=== PATIENT | female | born 1955 | race Two or more races ===

== ENCOUNTER 2019-09-20 20:36 | Inpatient (IN) | payer OTHER ==
[~2019-09-20] VITALS: Ht 165.1 cm; Wt 63.0 kg
[2019-09-20] MEDS ORDERED: PIPERACILLIN /TAZOBACTAM 3.375 G VIAL IV ONE (20:52)
--- NOTE | 2019-09-20 20:55 | NUR ---
PT CAME TO ER BED 8 BIB RA FROM [facility] C/O TACHYCARDIA. PER EMS REPORT, PATIENT HAD A HEART RATE OF 130 AND WAS BROUGHT TO ED FOR FURTHER SEPTIC ASSESSMENT. PATIENT HAS A TEMPERATURE OF 97.7 RECTALLY. PATIENT IS RESPONSIVE TO PAINFUL STIMULI, BUT DOES NOT RESPOND TO VERBAL STIMULI. NO SOB. ON 3L OF N/C. CONNECTED TO ASSISTANT TO THE VICE PRESIDENT.
[2019-09-20] MEDS ORDERED: IV NS 0.9% 1,000 ML BAG IV ONE (21:00)
[2019-09-20] MEDS ORDERED: PIPERACILLIN /TAZOBACTAM 3.375 G in IV D5W 50 ML IV ONE (21:00)
--- NOTE | 2019-09-20 21:02 | NUR ---
CULTURE AND BLOOD DRAWN AND SENT TO LAB
[2019-09-20 21:07] LABS: BASOPHILS # (AUTO) 0.1 /CMM (0.0-0.2); BASOPHILS % (AUTO) 0.6 % (0.0-2.0); EOSINOPHILS % (AUTO) 2.6 % (0.0-6.0); HEMATOCRIT 33 % (33-45); HEMOGLOBIN 10.5 g/dL (11.5-14.8); LYMPHOCYTES # (AUTO) 2.4 /CMM (0.8-4.8); LYMPHOCYTES % (AUTO) 19.2 % (20.0-44.0); MEAN CORPUSCULAR HGB CONC 32 g/dl (31.0-36.0); MEAN CORPUSCULAR VOLUME 91 fL (82-100); MONOCYTES # (AUTO) 1.2 /CMM (0.1-1.30); MONOCYTES % (AUTO) 9.1 % (2.0-12.0); NEUTROPHILS # (AUTO) 8.7 /CMM (1.8-8.9); NEUTROPHILS % (AUTO) 68.5 % (43.0-81.0); PLATELET COUNT (AUTO) 551 /CMM (150-450); RED BLOOD CELL COUNT(AUTO) 3.59 MIL/uL (4.0-5.2); WHITE BLOOD COUNT (AUTO) 12.7 K/uL (4.3-11.0)
[2019-09-20] MEDS ORDERED: CARB25TA3 GT (21:10)
[2019-09-20] MEDS ORDERED: DOCU-141 GT (21:11)
[2019-09-20] MEDS ORDERED: GABA-532 GT (21:13)
[2019-09-20] MEDS ORDERED: ENOX40DI9 SQ (21:13)
[2019-09-20] MEDS ORDERED: GINK120C GT (21:15)
[2019-09-20] MEDS ORDERED: PANT40SU GT (21:16)
[2019-09-20] MEDS ORDERED: ASPI-1169 GT (21:17)
[2019-09-20 21:18] LABS: CALCIUM, SERUM 9.3 mg/dL (8.5-10.1); CARBON DIOXIDE 28 mmol/L (21-32); CHLORIDE 107 mmol/L (98-107); CREATININE 0.9 mg/dL (0.6-1.3); GLUCOSE 137 mg/dL (74-106); POTASSIUM 4.1 mmol/L (3.5-5.1); SODIUM SERUM 146 mmol/L (136-145); UREA NITROGEN, BLOOD 23 mg/dL (7-18)
[2019-09-20] MEDS ORDERED: MULT1TAB73 GT (21:18)
[2019-09-20] MEDS ORDERED: ZINC1POW GT (21:19)
[2019-09-20] MEDS ORDERED: CRAN500C5 GT (21:20)
--- NOTE | 2019-09-20 21:23 | NUR ---
URINE COLLECTED AND SENT TO LAB
[2019-09-20 21:30] LABS: APPEARANCE,URINE Clear (CLEAR); BILIRUBIN,URINE Negative (NEGATIVE); BLOOD, URINE Negative Ery/uL (NEGATIVE); COLOR,URINE Yellow (YELLOW); KETONES,URINE Negative (NEGATIVE); LEUKOCYTE ESTERASE ,URINE Small (NEGATIVE); NITRITE, URINE Negative (NEGATIVE); PROTEIN,URINE 30 mg/dl (NEGATIVE); UGLUCOSE Negative (NEGATIVE); UROBILINOGEN,URINE 0.2 EU/dL (0.2)
[2019-09-20 21:37] LABS: ALANINE AMINOTRANSFERASE 23 U/L (12-78); ALBUMIN 2.2 g/dL (3.4-5.0); ALKALINE PHOSPHATASE 127 U/L (46-116); ASPARTATE AMINOTRANSFERASE 35 U/L (15-37); BILIRUBIN,TOTAL 0.1 mg/dL (0.2-1.0); TOTAL PROTEIN, SERUM 7.1 g/dL (6.4-8.2)
[2019-09-20 21:42] LABS: BACTERIA,URINE Many /HPF (None Seen); SQUAMOUS EPITHELIAL CELL,UR Many /HPF (None Seen)
[2019-09-20 21:43] LABS: WBC,URINE 21-50 /HPF (0-3)
[2019-09-20 21:44] LABS: HYALINE CASTS, URINE Few /LPF (None Seen)
[2019-09-20] MEDS ORDERED: ACETAMINOPHEN 325 MG TABLET PO PRN (22:00)
[2019-09-20] MEDS ORDERED: ONDANSETRON HCL/PF 4 MG/2 ML VIAL IVP PRN (22:00)
[2019-09-20] MEDS ORDERED: ZOLPIDEM TARTRATE 5 MG TABLET PO PRN (22:00)
[2019-09-20] MEDS ORDERED: Z GUARD REMEDY 2 OZ OINT TP PRN (22:00)
[2019-09-20] MEDS ORDERED: MAGNESIUM HYDROXIDE 30 ML UDC PO PRN (22:00)
[2019-09-20] MEDS ORDERED: MAG HYDROX/AL HYDROX/SIMETH 30 ML UDC PO PRN (22:00)
--- NOTE | 2019-09-20 22:35 | NUR ---
COVID SAMPLE SENT TO LAB
[2019-09-20 22:38] LABS: ABG BASE EXCESS -0.4 mmol/L; ABG OXYGEN SATURATION 97.6 % (92.0-98.5); ABG PCO2 35.6 mmHg (35.0-45.0); ABG PH 7.438 (7.350-7.450); AaDO2 66.5 mmHg; COHb 0.3 % (0.5-1.5); MetHb 0.5 % (0.0-1.5); O2Hb 96.8 % (94.0-97.0); SITE, ABG Right Radial; VENT MODE, BG N/C 3L
--- NOTE | 2019-09-20 22:39 | NUR ---
PATIEN SUCTIONED VIA NT, 100ML OF CLEAR SPUTUM.
--- NOTE | 2019-09-20 22:39 | NUR ---
SATURATION 100%, 3L N/C POST -SUCTION
--- NOTE | 2019-09-20 22:54 | NUR ---
ROOM [facility]
[2019-09-20] MEDS ORDERED: IV NS 0.9% 1,000 ML IV ONE (23:00)
[2019-09-20] MEDS ORDERED: LEVALBUTEROL HCL NEB 1.25 MG/0.5 ML VIAL.NEB NEB PRN (23:00)
--- NOTE | 2019-09-20 23:00 | NUR ---
REPORT GIVEN TO SATISH SNIDER FOR CHEYANNE.
--- NOTE | 2019-09-20 23:17 | NUR ---
RN AMBER ADMITTING NOTES RECEIVED PT FROM ER VIA [place] ON O2 3L VIA NC SATURATING @ 98%, NO SIGN AND SYMPTOMS OF RESPIRATORY DISTRESS PT IS COUGHING,PUT ON DROPLET ISOLATION TO R/O COVID PENDING RESULT OPEN HER EYES VIA MILD STIMULUS, ORIENTED X 0 JUST MOANING, SAFELY TRANSFER TO BED, V/S CHECKED AND RECORDED, HEAD TO TOE ASSESSMENT DONE, SACRAL, LOWER LEG WOUNDS NOTED FOR WOUND CONSULT, PT HAVE GTUBE PATENT AND NO LEAKAGE, WITH IV ON L AC#20 AND LHAND # 22 PATENT NO SIGN OF INFILTRATION, ADMISSION ASSESSMENT DONE, PUT TO TELE MONITOR WITH READING SINUS TACHY 120'S, SAFETY MEASURE MAINTAINED, BED ON LOWEST POSSIBLE POSITION AND LOCKED SIDE RAILS UP X3, CALL LIGHT WITHIN REACH WILL CONT TO MONITOR
[2019-09-20] MEDS ORDERED: VANCOMYCIN 1 GM in IV D5W 250ml IV ONE (23:30)
[2019-09-20] MEDS ORDERED: VANCOMYCIN 1 GM VIAL ONE (23:52)
[2019-09-21 00:28] VITALS: BP 133/63
[2019-09-21] MEDS ORDERED: LORAZEPAM INJ 2 MG/ML VIAL IV PRN (00:30)
[2019-09-21] MEDS: IV 1/2NS 1000 ML 1,000 ML IV SCH ×2 (00:49→12:18)
--- NOTE | 2019-09-21 00:55 | NUR ---
RN AMEBR NOTES NS BOLUS STOP PER SNEHA GORMAN HUMAN ANATOMY TEACHER ORDER, NOTED AND CARRIED OUT
[2019-09-21] MEDS ORDERED: PIPERACILLIN /TAZOBACTAM 3.375 G VIAL IV ONE (00:56)
--- NOTE | 2019-09-21 01:00 | NUR ---
RN AMBER NOTES SNEHA GORMAN MAINTENANCE HELPER WAS INFORMED ABOUT THE CRITICAL VALUE OF LACTIC ACID 3.5 mmol/L w/c is TRENDING UP WITH NO NEW ORDER
[2019-09-21] MEDS ORDERED: PIPERACILLIN /TAZOBACTAM 3.375 G in IV D5W 50 ML IV ONE (03:00)
[2019-09-21 04:00] VITALS: BP 144/90
[2019-09-21] MEDS ORDERED: FEE PK DOSING 1 MIN EA MC ONE (06:28)
--- NOTE | 2019-09-21 06:59 | NUR ---
RN CLOSING NOTES PT IS SLEEPING NO SIGN AND SYMPTOMS OF RESPIRATORY DISTRESS 02 SAT 100% @ 3L VIA NC, PT STILL COUGHING, ON TELE MONITOR WITH READING SINUS TACHY 110'S-130'S, DROPLET ISOLATION MAINTAINED AND OBSERVED TO R/0 COVID 19, RESULTS PENDING,SAFETY MEASURE MAINTAINED, BED ON LOWEST POSITION AND LOCKED CALL LIGHT WITHIN REACH, SIDE RAILS UP X3 ALL NEEDS ATTENDED WILL ENDORSED TO AM SHIFT RN
[2019-09-21 07:04] LABS: BASOPHILS # (AUTO) 0.1 /CMM (0.0-0.2); BASOPHILS % (AUTO) 0.5 % (0.0-2.0); EOSINOPHILS % (AUTO) 3.1 % (0.0-6.0); HEMATOCRIT 33 % (33-45); HEMOGLOBIN 10.8 g/dL (11.5-14.8); LYMPHOCYTES # (AUTO) 2.3 /CMM (0.8-4.8); LYMPHOCYTES % (AUTO) 22.4 % (20.0-44.0); MEAN CORPUSCULAR HGB CONC 33 g/dl (31.0-36.0); MEAN CORPUSCULAR VOLUME 91 fL (82-100); MONOCYTES # (AUTO) 1.3 /CMM (0.1-1.30); NEUTROPHILS # (AUTO) 6.2 /CMM (1.8-8.9); PLATELET COUNT (AUTO) 498 /CMM (150-450); RED BLOOD CELL COUNT(AUTO) 3.59 MIL/uL (4.0-5.2); WHITE BLOOD COUNT (AUTO) 10.2 K/uL (4.3-11.0)
--- NOTE | 2019-09-21 07:10 | NUR ---
RN opening note: Received patient in bed and asleep. Appears comfortable and relaxed. On cont. 02 via NC @3lpm being tolerated well. No SOB noted. Tele monitoring showing sinus tachycardia noted in the 120s. Isolation precautions strictly observed for R/O covid status. Gtube patent and in place. IV sites clean, dry, patent and intact. Velázquez catheter draining yellow urine. Call light in reach. Bed locked, low and at semi-catalan's position. Safety ensured and observed. Will continue to monitor.
[2019-09-21 07:15] LABS: CALCIUM, SERUM 8.5 mg/dL (8.5-10.1); CREATININE 0.8 mg/dL (0.6-1.3); MAGNESIUM 2.1 mg/dL (1.8-2.4); PHOSPHORUS 3.7 mg/dL (2.5-4.9); POTASSIUM 4.4 mmol/L (3.5-5.1)
[2019-09-21] MEDS ORDERED: ALBUTEROL HALF STRENGTH 1.25 MG/3 ML VIAL.NEB NEB PRN (07:35)
[2019-09-21] MEDS ORDERED: LATA2.5D7 EACHEYE (07:49)
[2019-09-21] MEDS ORDERED: LACT-96 GT (07:49)
[2019-09-21] MEDS ORDERED: SENN-261 GT (07:49)
[2019-09-21] MEDS ORDERED: GUAI100S11 GT (07:49)
[2019-09-21] MEDS ORDERED: CARB1TAB21 GT (07:49)
[2019-09-21] MEDS ORDERED: FERR300L GT (07:49)
[2019-09-21] MEDS ORDERED: ZINC1CAP2 GT (07:49)
[2019-09-21] MEDS ORDERED: CLOZ200T24 GT (07:49)
[2019-09-21] MEDS ORDERED: VIT500LI GT (07:49)
[2019-09-21 08:00] VITALS: BP_SYST 125; BP_SYST 141; BP_DIAS 60; BP_DIAS 91
[2019-09-21 08:01] LABS: C-REACTIVE PROTEIN 7.2 mg/dL (0.0-0.9)
[2019-09-21 08:24] LABS: IRON, SERUM 46 ug/dl (50-175); TOTAL IRON BINDING CAPACITY 151 ug/dl (250-450)
[2019-09-21] MEDS: PANTOPRAZOLE 40 MG/PACK PACK GT SCH ×2 (08:27→09:09)
[2019-09-21] MEDS: PIPERACILLIN /TAZOBACTAM 3.375 G in IV D5W 50 ML IV SCH ×4 (08:27→23:08)
[2019-09-21] MEDS: ASPIRIN 81 MG TAB.CHEW GT SCH ×2 (09:00→17:25)
[2019-09-21] MEDS ORDERED: CARBIDOPA 25 MG TABLET GT SCH ×2 (09:00)
[2019-09-21] MEDS: GABAPENTIN 100 MG CAPSULE GT SCH ×3 (09:09→17:24)
[2019-09-21] MEDS: MULTIVITAMINS,THERAGRAN 1 UDTAB TABLET GT SCH (09:10)
[2019-09-21] MEDS: ENOXAPARIN SODIUM 40 MG/0.4 ML DISP.SYRIN SQ SCH (09:14)
[2019-09-21] MEDS: CARBIDOPA/LEVODOPA 25/100 MG 1 UDTAB GT SCH ×4 (09:16→21:05)
--- NOTE | 2019-09-21 10:00 | NUR ---
RN NOTE: Spoke to Kirill Raya DNP to clarify regarding patient's Aspirin 81mg daily as patient has Lovenox 40mg Daily per recommendation of Med Recon NurseLuis E. Kirill acknowledged information. Ok to hold today but medication was not discontinued.
[2019-09-21 11:07] LABS: THYROID STIMULATING HORMONE 3.528 uIU/mL (0.358-3.74)
[2019-09-21 12:00] VITALS: BP 136/89
[2019-09-21] MEDS: VANCOMYCIN 1 GM in IV D5W 250 ML IV SCH ×2 (12:00→23:08)
[2019-09-21 16:00] VITALS: BP 135/85
--- NOTE | 2019-09-21 16:00 | NUR ---
RN note: Clarified with Kirill Raya DNP if Clozapine 200mg HS should be continued per pharmacy. Medication was ordered, noted and carried out.
--- NOTE | 2019-09-21 17:20 | NUR ---
RN NOTE: per pharmacy patient needs to be enrolled in rems program to be able to get Clozapine. Informed Kirill Raya DNP of situation and he acknowledged and will process it
[2019-09-21] MEDS ORDERED: AZITHROMYCIN 250 MG TABLET PO SCH (18:00)
[2019-09-21] MEDS ORDERED: AZITHROMYCIN 250 MG TABLET GT ONE (18:00)
--- NOTE | 2019-09-21 19:36 | NUR ---
RN closing note: Patient in bed and asleep. Appears comfortable and relaxed. On cont. 02 via NC @3lpm being tolerated well. No SOB noted. Tele monitoring showing sinus tachycardia noted in the 100s. Isolation precautions strictly observed for R/O covid status. Gtube patent and in place. IV sites clean, dry, patent and intact. Velázquez catheter draining yellow urine. Call light in reach. Bed locked, low and at semi-catalan's position. Safety ensured and observed. Endorsed to oncoming shift for CHEYANNE.
--- NOTE | 2019-09-21 19:40 | NUR ---
RN NOTES, Patient in bed sleeping at this time, breathing even and unlabored, no s/s of sob/acute distress noted at this time, on 3lmp via nl with o2 sat level 99% at this time, sinus tachy in tele monitoring with hr low 100s at this time, on Isolation precautions strictly observed for R/O covid status, NPO at this time, IV sites patent and intact, Velázquez catheter in placed draining yellow urine, patency intact, call light in reach, Bed locked and low position, all needs provided, will continue to monitor closely.
[2019-09-21 20:00] VITALS: BP 133/80
[2019-09-21] MEDS ORDERED: CLOZAPINE 100 MG TABLET PO SCH (22:00)
[2019-09-22] VITALS: BP 133/82
[2019-09-22 04:00] VITALS: BP 129/79
[2019-09-22] MEDS: PIPERACILLIN /TAZOBACTAM 3.375 G in IV D5W 50 ML IV SCH ×3 (05:00→17:00)
[2019-09-22] MEDS: IV 1/2NS 1000 ML 1,000 ML IV SCH ×2 (05:41→16:48)
--- NOTE | 2019-09-22 07:04 | NUR ---
RN CLOSING NOTES, Patient in bed and asleep, breathing even and unlabored, no sob/acute distress noted on 3lpm via nc, cont sinus tachycardia in tele monitor, with HR low 100s, on Isolation precautions for R/O covid status, still waiting for results, no significant change in condition throughout the night, call light w/i in reach, bed locked and low position, with hob elevated, Safety precautions in placed, will endorsed continuity of care to oncoming nurse.
[2019-09-22 07:05] LABS: BASOPHILS # (AUTO) 0.1 /CMM (0.0-0.2); BASOPHILS % (AUTO) 0.8 % (0.0-2.0); EOSINOPHILS % (AUTO) 3.8 % (0.0-6.0); HEMATOCRIT 29 % (33-45); HEMOGLOBIN 9.6 g/dL (11.5-14.8); LYMPHOCYTES # (AUTO) 2.1 /CMM (0.8-4.8); LYMPHOCYTES % (AUTO) 17.1 % (20.0-44.0); MEAN CORPUSCULAR HGB CONC 33 g/dl (31.0-36.0); MEAN CORPUSCULAR VOLUME 89 fL (82-100); MONOCYTES # (AUTO) 1.4 /CMM (0.1-1.30); MONOCYTES % (AUTO) 10.8 % (2.0-12.0); NEUTROPHILS # (AUTO) 8.4 /CMM (1.8-8.9); NEUTROPHILS % (AUTO) 67.5 % (43.0-81.0); PLATELET COUNT (AUTO) 482 /CMM (150-450); RED BLOOD CELL COUNT(AUTO) 3.25 MIL/uL (4.0-5.2); WHITE BLOOD COUNT (AUTO) 12.5 K/uL (4.3-11.0)
--- NOTE | 2019-09-22 07:20 | NUR ---
ALL SOURCE COLLECTION MANAGER NOTES PATIENT IN BED ABLE TO OPEN EYES WHEN NAME IS CALLED.A/OX1 CONFUSED. SATURATION 100%. ON MARTINEZ CATHETER AND RIGHT ARM IV LINES ARE PATENT AND FLUSHED WITH NS WELL. SINUS TACHYCARDIA LOW 100`S. ON ISOLATION TO RULE OUT COVID-19. CALL LIGHT WITHIN REACH BED AT THE LOWEST POSITION LOCKED . WILL CONTINUE TO MONITOR.
--- NOTE | 2019-09-22 07:20 | NUR ---
SAFETY SCIENTIST NOTES NO RESIDUAL NOTED AT GT SITE.
[2019-09-22 07:21] LABS: ALANINE AMINOTRANSFERASE 12 U/L (12-78); ALKALINE PHOSPHATASE 113 U/L (46-116); ASPARTATE AMINOTRANSFERASE 29 U/L (15-37); BILIRUBIN,TOTAL 0.4 mg/dL (0.2-1.0); CALCIUM, SERUM 8.4 mg/dL (8.5-10.1); CARBON DIOXIDE 28 mmol/L (21-32); CHLORIDE 105 mmol/L (98-107); GLUCOSE 100 mg/dL (74-106); MAGNESIUM 1.8 mg/dL (1.8-2.4); POTASSIUM 3.4 mmol/L (3.5-5.1); SODIUM SERUM 142 mmol/L (136-145); TOTAL PROTEIN, SERUM 6.1 g/dL (6.4-8.2); UREA NITROGEN, BLOOD 11 mg/dL (7-18)
[2019-09-22 08:00] VITALS: BP 134/94
--- NOTE | 2019-09-22 08:00 | NUR ---
INFORMATICS SPEC NOTES O2 SATURATION 100%
--- NOTE | 2019-09-22 08:08 | NUR ---
WOUND CARE CONSULT: REVIEWED ADMISSION DOCUMENTATION INCLUDING PHOTOS WHICH SHOW SACRAL AND LEFT LOWER LEG WOUNDS, PRESENT ON ADMISSION. RECOMMEND SURGICAL/DPM CONSULTS. DR GUERRA AND DR MURRAY NOTIFIED OF CONSULT REQUESTS. FIRST STEP LOW AIRLOSS MATTRESS ON ORDER. RECOMMENDATIONS MADE FOR SKIN PROTECTION. DISCUSSED WITH NURSING STAFF. WILL SEE PRN. SEGURA IN AGREEMENT WITH PLAN OF CARE.
[2019-09-22] MEDS: ASPIRIN 81 MG TAB.CHEW GT SCH ×2 (09:19→16:48)
[2019-09-22] MEDS: CARBIDOPA/LEVODOPA 25/100 MG 1 UDTAB GT SCH ×4 (09:19→21:44)
[2019-09-22] MEDS: GABAPENTIN 100 MG CAPSULE GT SCH ×3 (09:19→16:48)
[2019-09-22] MEDS: MULTIVITAMINS,THERAGRAN 1 UDTAB TABLET GT SCH (09:19)
[2019-09-22] MEDS: ENOXAPARIN SODIUM 40 MG/0.4 ML DISP.SYRIN SQ SCH (09:20)
--- NOTE | 2019-09-22 10:00 | NUR ---
INFORMATION MANAGEMENT SPECIALIST NOTES O2 SATURATION 100%
[2019-09-22] MEDS ORDERED: POTASSIUM CHLORIDE 20 MEQ POWDER PACKET GT SCH (10:30)
[2019-09-22] MEDS: CLOTRIMAZOLE 1% 15 GM TUBE TP SCH ×2 (11:25→16:49)
[2019-09-22 12:00] VITALS: BP 120/74
--- NOTE | 2019-09-22 12:00 | NUR ---
SENIOR BEHAVIORAL SCIENTIST NOTES O2 SATURATION 100%
--- NOTE | 2019-09-22 12:25 | NUR ---
BUSINESS MANAGEMENT ANALYST NOTES PER ASSISTANT PROFESSOR OF ECONOMICS RK IT IS OK TO RESUME THE FEEDING.
--- NOTE | 2019-09-22 12:56 | NUR ---
HEDGE FUND TRADER NURSE JUDI NOT ADMINISTRATED DUE TO HIGH 31 THROUGH INFORMED PHARMACY.
--- NOTE | 2019-09-22 14:00 | NUR ---
CANDY BUTCHER NOTES O2 SATURATION 100%
[2019-09-22 16:00] VITALS: BP 118/79
--- NOTE | 2019-09-22 16:00 | NUR ---
MANAGER LANGUAGE NOTES O2 SATURATION 100%
[2019-09-22] MEDS: JEVITY 1.2 CAL 1,000 ML BOTTLE GT PRN (16:09)
--- NOTE | 2019-09-22 18:00 | NUR ---
SEED TESTER NOTES O2 SATURATION 100%
--- NOTE | 2019-09-22 19:15 | NUR ---
DEEP SUBMERGENCE VEHICLE CREWMEMBER NOTES PATIENT IN BED ABLE TO OPEN EYES WHEN NAME IS CALLED.A/OX1 CONFUSED. SATURATION 100%. NO SOB OR DISCOMFORT AT THIS TIME. ALL NEEDS ATTENDED, MEDICATION ADMINISTRATED. RIGHT ARM IV LINES ARE PATENT AND FLUSHED WITH NS WELL. SINUS TACHYCARDIA LOW 100`S. CALL LIGHT WITHIN REACH BED AT THE LOWEST POSITION LOCKED . ENDORSED TO MERCHANT BANKER NURSE FOR CHEYANNE.
[2019-09-22] MEDS ORDERED: CEFEPIME 1 GM in IV D5W 50 ML IV SCH (19:30)
--- NOTE | 2019-09-22 19:40 | NUR ---
WIND FARM SUPPORT SPECIALIST NOTES, PATIENT IN BED OPEN EYES SPONTANEOUSLY, BREATHING EVEN AND UNLABORED, NO SOB/ACUTE DISTRESS NOTED AT THIS TIME, SATURATION 99-100% VIA NC 3LPM, SINUS TACHYCARDIA IN TELE MONITOR WITH HR LOW 100`S DRY AND CLEAN AND WELL REPOSITIONED, LEFT AC AND LEFT HAND PIV LINES IN PLACED, PATENT AND INTACT, AND IVF INFUSING ORDERED, PATIENT TOLERATED WELL, ACCORDING WITH LAB RESULTS NEGATIVE FOR COVID 19, CALL LIGHT WITHIN REACH, BED LOCKED AND LOWEST POSITION, WILL CONTINUE TO MONITOR CLOSELY.
[2019-09-22 20:00] VITALS: BP 146/91
[2019-09-22] MEDS ORDERED: CEFEPIME 1 GM VIAL ONE (22:05)
[2019-09-22] MEDS: CEFEPIME 2 GM in IV D5W 100 ML IV SCH (22:58)
[2019-09-23] VITALS: BP 146/97
[2019-09-23 04:00] VITALS: BP 140/74
[2019-09-23 06:29] LABS: BASOPHILS # (AUTO) 0.1 /CMM (0.0-0.2); BASOPHILS % (AUTO) 0.7 % (0.0-2.0); EOSINOPHILS % (AUTO) 3.4 % (0.0-6.0); HEMATOCRIT 28 % (33-45); HEMOGLOBIN 9.2 g/dL (11.5-14.8); LYMPHOCYTES % (AUTO) 21.7 % (20.0-44.0); MEAN CORPUSCULAR HGB CONC 34 g/dl (31.0-36.0); MEAN CORPUSCULAR VOLUME 89 fL (82-100); MONOCYTES # (AUTO) 0.8 /CMM (0.1-1.30); MONOCYTES % (AUTO) 8.9 % (2.0-12.0); NEUTROPHILS % (AUTO) 65.3 % (43.0-81.0); PLATELET COUNT (AUTO) 482 /CMM (150-450); WHITE BLOOD COUNT (AUTO) 9.2 K/uL (4.3-11.0)
[2019-09-23 06:55] LABS: CALCIUM, SERUM 8.6 mg/dL (8.5-10.1); CREATININE 0.7 mg/dL (0.6-1.3); POTASSIUM 3.3 mmol/L (3.5-5.1)
--- NOTE | 2019-09-23 07:04 | NUR ---
RN CLOSING NOTES, Patient in bed awake at this time, a/o to self, , breathing even and unlabored, no sob/acute distress noted on 3lpm via nc, cont sinus tachycardia in tele monitor, with HR low 100s, negavite for covid 19, no significant change in condition throughout the night, call light w/i in reach, bed locked and low position, with hob elevated, Safety precautions in placed, will endorsed continuity of care to oncoming nurse.
--- NOTE | 2019-09-23 07:35 | NUR ---
ms rn received on bed,sleeping, opens eyes, responds to stimuli,no s/s of pain noted, respirations even and unlabored, valdivia to gravity w/ yellowish urine output,a ll needs attended.
[2019-09-23 08:00] VITALS: BP_SYST 143; BP_SYST 155; BP_SYST 94; BP_DIAS 49; BP_DIAS 55; BP_DIAS 99
[2019-09-23] MEDS ORDERED: VANCOMYCIN 0.75 GM in IV D5W 250 ML IV SCH (09:00)
--- NOTE | 2019-09-23 09:00 | NUR ---
ms rn, due meds given via g tube, tolerated well, w/o residual.
[2019-09-23] MEDS: MULTIVITAMINS,THERAGRAN 1 UDTAB TABLET GT SCH (09:54)
[2019-09-23] MEDS: ASPIRIN 81 MG TAB.CHEW GT SCH ×2 (09:54→17:22)
[2019-09-23] MEDS: GABAPENTIN 100 MG CAPSULE GT SCH ×3 (09:54→17:22)
[2019-09-23] MEDS: CARBIDOPA/LEVODOPA 25/100 MG 1 UDTAB GT SCH ×4 (09:56→21:43)
[2019-09-23] MEDS: PANTOPRAZOLE 40 MG/PACK PACK GT SCH (10:03)
[2019-09-23] MEDS: ENOXAPARIN SODIUM 40 MG/0.4 ML DISP.SYRIN SQ SCH (10:16)
[2019-09-23] MEDS: CLOTRIMAZOLE 1% 15 GM TUBE TP SCH ×2 (10:17→17:23)
[2019-09-23] MEDS ORDERED: POTASSIUM CHLORIDE 20 MEQ POWDER PACKET GT SCH (10:30)
--- NOTE | 2019-09-23 11:50 | NUR ---
ms rn was seen by nereyda jarvis/ marcelino to reswab patient.
[2019-09-23 12:00] VITALS: BP_SYST 132; BP_SYST 144; BP_DIAS 89; BP_DIAS 91
[2019-09-23] MEDS: CEFEPIME 2 GM in IV D5W 100 ML IV SCH ×2 (12:28→23:17)
[2019-09-23] MEDS: IV 1/2NS 1000 ML 1,000 ML IV SCH ×2 (12:29→21:49)
--- NOTE | 2019-09-23 13:30 | NUR ---
ms rn swab sent to lab,no distress noted.
--- NOTE | 2019-09-23 14:00 | NUR ---
ms restrepo cleaned patient w/ x1 large bm.
[2019-09-23 16:00] VITALS: BP 156/87
[2019-09-23] MEDS ORDERED: POTASSIUM CHLORIDE 20 MEQ POWDER PACKET GT ONE (16:30)
[2019-09-23] MEDS: JEVITY 1.2 CAL 1,000 ML BOTTLE GT PRN (17:51)
--- NOTE | 2019-09-23 18:35 | NUR ---
ms rn on bed, no distress noted, all needs attended.
[2019-09-23 20:00] VITALS: BP_SYST 129; BP_SYST 138; BP_DIAS 84; BP_DIAS 86
[2019-09-24] VITALS: BP_SYST 138; BP_DIAS 86; BP_DIAS 89
[2019-09-24] MEDS: VANCOMYCIN 0.75 GM in IV D5W 250 ML IV SCH ×2 (03:40→21:04)
[2019-09-24 04:00] VITALS: BP 152/86
[2019-09-24 06:33] LABS: BASOPHILS # (AUTO) 0.1 /CMM (0.0-0.2); BASOPHILS % (AUTO) 0.8 % (0.0-2.0); EOSINOPHILS % (AUTO) 3.8 % (0.0-6.0); HEMATOCRIT 27 % (33-45); HEMOGLOBIN 8.9 g/dL (11.5-14.8); LYMPHOCYTES # (AUTO) 2.4 /CMM (0.8-4.8); MEAN CORPUSCULAR HGB CONC 34 g/dl (31.0-36.0); MEAN CORPUSCULAR VOLUME 89 fL (82-100); MONOCYTES # (AUTO) 0.8 /CMM (0.1-1.30); MONOCYTES % (AUTO) 9.4 % (2.0-12.0); NEUTROPHILS # (AUTO) 5.2 /CMM (1.8-8.9); PLATELET COUNT (AUTO) 476 /CMM (150-450); RED BLOOD CELL COUNT(AUTO) 2.99 MIL/uL (4.0-5.2); WHITE BLOOD COUNT (AUTO) 8.9 K/uL (4.3-11.0)
[2019-09-24 06:52] LABS: CALCIUM, SERUM 8.8 mg/dL (8.5-10.1); CREATININE 0.7 mg/dL (0.6-1.3); POTASSIUM 3.3 mmol/L (3.5-5.1)
--- NOTE | 2019-09-24 07:20 | NUR ---
RN NOTES PATIENT IN BED ALERT TO SELF.HEAD OF BED ELEVATED. NO ACUTE DISTRESS NOTED. BREATHING UNLABORED. ON GTUBE FEEDING, INFUSING WELL. SAFETY MEASURES IN PLACE. CALL LIGHT WITHIN REACH. WILL CONTINUE TO MONITOR ACCORDINGLY.
[2019-09-24 08:00] VITALS: BP_SYST 130; BP_SYST 137; BP_DIAS 68; BP_DIAS 87
[2019-09-24] MEDS ORDERED: POTASSIUM CHLORIDE 20 MEQ POWDER PACKET GT SCH (08:00)
[2019-09-24] MEDS: PANTOPRAZOLE 40 MG/PACK PACK GT SCH (08:09)
[2019-09-24] MEDS: ASPIRIN 81 MG TAB.CHEW GT SCH ×2 (09:06→17:12)
[2019-09-24] MEDS: CARBIDOPA/LEVODOPA 25/100 MG 1 UDTAB GT SCH ×4 (09:06→21:04)
[2019-09-24] MEDS: ENOXAPARIN SODIUM 40 MG/0.4 ML DISP.SYRIN SQ SCH (09:06)
[2019-09-24] MEDS: MULTIVITAMINS,THERAGRAN 1 UDTAB TABLET GT SCH (09:06)
[2019-09-24] MEDS: GABAPENTIN 100 MG CAPSULE GT SCH ×3 (09:07→17:12)
[2019-09-24] MEDS: CLOTRIMAZOLE 1% 15 GM TUBE TP SCH ×2 (09:25→17:13)
--- NOTE | 2019-09-24 10:00 | NUR ---
RN NOTES O2 SATURATION @ 99 % ON 3LPM VIA NC.
[2019-09-24] MEDS: CEFEPIME 2 GM in IV D5W 100 ML IV SCH ×2 (11:19→22:59)
[2019-09-24 12:00] VITALS: BP 124/76
--- NOTE | 2019-09-24 12:00 | NUR ---
RN NOTES O2 SATURATION @ 98% ON 3LPM VIA NASAL CANULA.
[2019-09-24] MEDS: IV 1/2NS 1000 ML 1,000 ML IV SCH (12:21)
[2019-09-24] MEDS ORDERED: POTASSIUM CHLORIDE 20 MEQ POWDER PACKET NG SCH (12:30)
--- NOTE | 2019-09-24 14:00 | NUR ---
RN NOTES O2 SATURATION 98% @ 3LPM VIA NASAL CANNULA.
[2019-09-24 16:00] VITALS: BP 133/70
--- NOTE | 2019-09-24 16:00 | NUR ---
RN NOTES O2 SATURATION 100% @ 3LPM VIA NASAL CANNULA. NO ACUTE DISTRESS NOTED.
--- NOTE | 2019-09-24 18:46 | NUR ---
RN NOTES PATIENT IN BED ALERT TO SELF.HEAD OF BED ELEVATED. NO ACUTE DISTRESS NOTED. BREATHING UNLABORED. ON GTUBE FEEDING, TOLERATING WELL. NEEDS ATTENDED AND ANTICIPATED. KEPT CLEAN DRY AND COMFORTABLE. REPOSITIONED EVERY 2 HOURS AND NEEDED. SAFETY MEASURES IN PLACE. CALL LIGHT WITHIN REACH. WILL ENDORSE TO NIGHT NURSE FOR CONTINUITY OF CARE.
--- NOTE | 2019-09-24 19:30 | NUR ---
COMPUTER TECHNICIAN NOTES PATIENT IS IN BED ALERT OPEN EYES TO NAME. BREATHING NORMAL NO SOB NOTED. RESPIRATION EVEN NON LABORED. ON TELE MONITOR CURRENT READING IS ST IN 90'S. F/C INTACT YELLOW URINE RUNNING WITH GRAVITY NO ODER NOTED. ON GTF 5ML RESIDUAL NOTED HOB ELEVATED ALL THE TIMES TO PREVENT ASPIRATION. LT HAND, LT AC IV SITES INTACT PATENT FLUSHING WELL. ALL SAFETY MEASURES IN PLACE, CALL LIGHT WITHIN REACH, SIDE RAILS UP X2. WILL CONT WITH CHEYANNE.
[2019-09-24 20:00] VITALS: BP 140/91
--- NOTE | 2019-09-24 22:00 | NUR ---
OPTICAL FABRICATION TECHNICIAN NOTE PATIENT IS ON OXYGEN 3L/MIN VIA NASAL CANNULA SATURATING 100%.
[2019-09-25] VITALS: BP_SYST 140; BP_SYST 141; BP_DIAS 84
--- NOTE | 2019-09-25 | NUR ---
SIEBEL ADMINISTRATOR NOTE PATIENT IS ON OXYGEN 3L/MIN VIA NASAL CANNULA SATURATING 100%.
--- NOTE | 2019-09-25 02:00 | NUR ---
AUDIO VISUAL DESIGN ENGINEER NOTE PATIENT IS ON OXYGEN 3L/MIN VIA NASAL CANNULA SATURATING 99%.
[2019-09-25] MEDS: JEVITY 1.2 CAL 1,000 ML BOTTLE GT PRN (02:10)
[2019-09-25] MEDS: IV 1/2NS 1000 ML 1,000 ML IV SCH ×2 (02:13→17:05)
[2019-09-25 04:00] VITALS: BP 147/94
--- NOTE | 2019-09-25 04:00 | NUR ---
ESCROW CLERK NOTE PATIENT IS ON OXYGEN 3L/MIN VIA NASAL CANNULA SATURATING 100%.
--- NOTE | 2019-09-25 06:36 | NUR ---
ADVANCED SEAL DELIVERY SYSTEM NOTES PATIENT RESTED WELL THROUGH OUT THE NIGHT. BREATHING NORMAL NO SOB NOTED. ALL DUE MEDICATIONS WERE GIVEN TOLERATED WELL. NO S/S OF ACUTE DISTRESS NOTED. KEPT CLEAN AND COMFORTABLE. TURNING REPOSITIONING Q2H ORDERED. CONTINUES ON GTF TOLERATING WELL HOB ELEVATED. CONTINUES ON ISOLATION. PRECAUTIONS. ALL SAFETY MEASURES IN PLACE, CALL LIGHT WITHIN REACH, SIDE RAILS UP X2. WILL ENDORSE PATIENT TO DAY SHIFT NURSE FOR CHEYANNE.
[2019-09-25 06:38] LABS: BASOPHILS # (AUTO) 0.1 /CMM (0.0-0.2); BASOPHILS % (AUTO) 1.1 % (0.0-2.0); EOSINOPHILS % (AUTO) 3.2 % (0.0-6.0); HEMATOCRIT 28 % (33-45); HEMOGLOBIN 9.2 g/dL (11.5-14.8); LYMPHOCYTES # (AUTO) 2.7 /CMM (0.8-4.8); LYMPHOCYTES % (AUTO) 24.1 % (20.0-44.0); MEAN CORPUSCULAR HGB CONC 33 g/dl (31.0-36.0); MEAN CORPUSCULAR VOLUME 89 fL (82-100); MONOCYTES % (AUTO) 8.5 % (2.0-12.0); NEUTROPHILS # (AUTO) 7.1 /CMM (1.8-8.9); NEUTROPHILS % (AUTO) 63.1 % (43.0-81.0); PLATELET COUNT (AUTO) 494 /CMM (150-450); RED BLOOD CELL COUNT(AUTO) 3.15 MIL/uL (4.0-5.2); WHITE BLOOD COUNT (AUTO) 11.2 K/uL (4.3-11.0)
[2019-09-25 06:58] LABS: CALCIUM, SERUM 8.3 mg/dL (8.5-10.1); CREATININE 0.7 mg/dL (0.6-1.3); POTASSIUM 4.3 mmol/L (3.5-5.1)
--- NOTE | 2019-09-25 07:40 | NUR ---
RN OPENING NOTE: RECEIVED PATIENT IN BED THIS MORNING. PATIENT IS ALERT AND ORIENTED TO FIRST NAME ONLY. PATIENT IS ON O2 3L/MIN VIA NC, NO SIGNS OF RESPIRATORY DISTRESS NOTED. NO SIGNS OF ACUTE DISTRESS NOTED. PATIENT IS ON TELE MONITOR, SINUS TACH 106 NOTED. PATIENT HAS MARTINEZ, DRAINING WELL, NO SIGNS OF COMPLICATIONS NOTED. PATIENT ON GTF, NO RESIDUAL NOTED, NO SIGNS OF COMPLICATIONS NOTED. #22 ON LEFT HAND AND LAC, C/D/I, FLUSHES WELL, NO SIGNS OF COMPLICATIONS NOTED. SAFETY MEASURES IMPLICATED, BED IN LOWEST POSITION, LOCKED, SIDE RAILS UP X2, CALL LIGHT WITHIN REACH. WILL CONTINUE TO MONITOR PATIENT FOR CONTINUITY OF CARE.
[2019-09-25 08:00] VITALS: BP 138/91
[2019-09-25] MEDS: GABAPENTIN 100 MG CAPSULE GT SCH ×3 (08:52→16:18)
[2019-09-25] MEDS: MULTIVITAMINS,THERAGRAN 1 UDTAB TABLET GT SCH (08:52)
[2019-09-25] MEDS: PANTOPRAZOLE 40 MG/PACK PACK GT SCH (08:52)
[2019-09-25] MEDS: CARBIDOPA/LEVODOPA 25/100 MG 1 UDTAB GT SCH ×4 (08:52→20:13)
[2019-09-25] MEDS: CLOTRIMAZOLE 1% 15 GM TUBE TP SCH ×2 (08:52→17:05)
[2019-09-25] MEDS: ASPIRIN 81 MG TAB.CHEW GT SCH ×2 (08:52→16:18)
[2019-09-25] MEDS: ENOXAPARIN SODIUM 40 MG/0.4 ML DISP.SYRIN SQ SCH (09:08)
[2019-09-25] MEDS: CEFEPIME 2 GM in IV D5W 100 ML IV SCH ×2 (11:29→23:06)
[2019-09-25 12:00] VITALS: BP 132/81
[2019-09-25] MEDS: VANCOMYCIN 0.75 GM in IV D5W 250 ML IV SCH (14:18)
[2019-09-25 16:00] VITALS: BP 154/90
--- NOTE | 2019-09-25 18:39 | NUR ---
RN CLOSING NOTE: PATIENT REMAINS IN BED. NO SIGNS OF RESPIRATORY DISTRESS NOTED. NO SIGNS OF ACUTE DISTRESS NOTED. PATIENT IS ON TELE MONITOR, SINUS TACH 101. MARTINEZ/GT/IV FUNCTIONING PROPERLY. SAFETY MEASURES IMPLICATED, BED IN LOWEST POSITION, LOCKED, SIDE RAILS UP X2, CALL LIGHT WITHIN REACH. WILL ENDORSE TO ONCOMING SHIFT RN FOR CONTINUITY OF CARE.
[2019-09-25 20:00] VITALS: BP 152/94
[2019-09-26] VITALS: BP 134/88
[2019-09-26 04:00] VITALS: BP 154/84
[2019-09-26] MEDS: IV 1/2NS 1000 ML 1,000 ML IV SCH (05:52)
--- NOTE | 2019-09-26 07:30 | NUR ---
MS RN OPENING NOTES RECEIVED PATIENT IN BED, ASLEEP. PATIENT BREATHING ON ROOM OXYGEN ON 3 LPM. PATIENT IN BREATHING EVEN AND UNLABORED, NO SIGNS OF SOB AT THIS TIME. LEFT HAND IV ACCESS GAUGE # 22 AND LAC GAUGE # 22 PRESENT INTACT AND INFUSING 1/2 NS AT 70 CC/HR. PATIENT HAS A MARTINEZ IN PLACE, DRAINING YELLOW CLEAR URINE. SAFETY PRECAUTIONS IN PLACE; BED IN LOW POSITION AND LOCKED, RAILS UP X2, CALL LIGHT WITHIN REACH. WILL CONTINUE TO MONITOR PATIENT.
[2019-09-26 07:59] LABS: CALCIUM, SERUM 8.4 mg/dL (8.5-10.1); CREATININE 0.7 mg/dL (0.6-1.3); POTASSIUM 4.3 mmol/L (3.5-5.1)
[2019-09-26 08:00] VITALS: BP 123/87
[2019-09-26] MEDS ORDERED: CEFE2PIG2 IV (08:16)
[2019-09-26] MEDS ORDERED: RXVAN IV (08:16)
[2019-09-26 08:18] LABS: BASOPHILS # (AUTO) 0.1 /CMM (0.0-0.2); BASOPHILS % (AUTO) 0.7 % (0.0-2.0); EOSINOPHILS % (AUTO) 3.1 % (0.0-6.0); HEMATOCRIT 27 % (33-45); HEMOGLOBIN 9.2 g/dL (11.5-14.8); LYMPHOCYTES # (AUTO) 2.1 /CMM (0.8-4.8); LYMPHOCYTES % (AUTO) 20.4 % (20.0-44.0); MEAN CORPUSCULAR HGB CONC 34 g/dl (31.0-36.0); MEAN CORPUSCULAR VOLUME 89 fL (82-100); MONOCYTES # (AUTO) 0.9 /CMM (0.1-1.30); MONOCYTES % (AUTO) 8.5 % (2.0-12.0); NEUTROPHILS % (AUTO) 67.3 % (43.0-81.0); PLATELET COUNT (AUTO) 500 /CMM (150-450); RED BLOOD CELL COUNT(AUTO) 3.07 MIL/uL (4.0-5.2); WHITE BLOOD COUNT (AUTO) 10.5 K/uL (4.3-11.0)
[2019-09-26] MEDS: GABAPENTIN 100 MG CAPSULE GT SCH ×2 (08:24→13:16)
[2019-09-26] MEDS: CARBIDOPA/LEVODOPA 25/100 MG 1 UDTAB GT SCH ×2 (08:24→13:16)
[2019-09-26] MEDS: MULTIVITAMINS,THERAGRAN 1 UDTAB TABLET GT SCH (08:24)
[2019-09-26] MEDS: PANTOPRAZOLE 40 MG/PACK PACK GT SCH (08:24)
[2019-09-26] MEDS: ENOXAPARIN SODIUM 40 MG/0.4 ML DISP.SYRIN SQ SCH (08:27)
[2019-09-26] MEDS: ASPIRIN 81 MG TAB.CHEW GT SCH (08:29)
[2019-09-26] MEDS: CLOTRIMAZOLE 1% 15 GM TUBE TP SCH (08:34)
[2019-09-26] MEDS ORDERED: IV 1/2NS 1000 ML 1,000 ML IV PRN (08:59)
[2019-09-26 09:00] VITALS: BP 123/87
[2019-09-26] MEDS: VANCOMYCIN 0.75 GM in IV D5W 250 ML IV SCH (09:46)
[2019-09-26] MEDS: CEFEPIME 2 GM in IV D5W 100 ML IV SCH (11:06)
[2019-09-26 12:00] VITALS: BP 137/84
[2019-09-26 12:54] VITALS: BP 131/84
--- NOTE | 2019-09-26 16:38 | NUR ---
MS AGRICULTURE SCIENCE TEACHER NOTES PATIENT DISCHARGED TO SNF IN MEDICALLY STABLE CONDITION. PATIENT'S VITAL SIGNS WNL, NO PAIN REPORTED BY THE PATIENT. ALL DISCHARGE PAPERWORK DONE AND SIGNED BY 2 RN'S DUE TO THE FACT THAT PATIENT IS UNABLE TO SIGN HERSELF. CALLED SNF AND REPORT GIVEN OVER THE PHONE TO TYLOR BOWEN. ALL QUESTIONS ANSWERED. PHOTOS TAKEN AND FILED. WRIST BAND REMOVED BEFORE PATIENT LEFT THE FLOOR. PATIENT LEFT THE FLOOR VIA GURNEY ACCOMPANIED BY 2 personnel supervisor.
== END 2019-09-26 16:05 | DRG 720 ==
LOC: ER 20:39 → TELE-TD 22:57 → TELE1 09-21 09:09
PROVIDERS: ADMIT Nurse Practitioner Acute Care; ATTEND Family Medicine
DX: A41.9 Sepsis, unspecified organism (principal); E43 Unspecified severe protein-calorie malnutrition; G93.41 Metabolic encephalopathy; L89.156 Pressure-induced deep tissue damage of sacral region; J96.01 Acute respiratory failure with hypoxia; J96.02 Acute respiratory failure with hypercapnia; E87.2 Acidosis; G20 Parkinson's disease; R13.10 Dysphagia, unspecified; J15.9 Unspecified bacterial pneumonia; F02.80 Dementia in other diseases classified elsewhere, unspecified severity, without behavioral disturbance, psychotic disturbance, mood disturbance, and anxiety; G62.9 Polyneuropathy, unspecified; D63.8 Anemia in other chronic diseases classified elsewhere; E78.5 Hyperlipidemia, unspecified; L30.4 Erythema intertrigo; K21.9 Gastro-esophageal reflux disease without esophagitis; E87.6 Hypokalemia; Z88.5 Allergy status to narcotic agent; Z79.82 Long term (current) use of aspirin; Z79.01 Long term (current) use of anticoagulants; Z79.899 Other long term (current) drug therapy; J98.11 Atelectasis; N39.0 Urinary tract infection, site not specified; Y95 Nosocomial condition; Z74.01 Bed confinement status; Z93.1 Gastrostomy status; F29 Unspecified psychosis not due to a substance or known physiological condition; L97.929 Non-pressure chronic ulcer of unspecified part of left lower leg with unspecified severity; B96.4 Proteus (mirabilis) (morganii) as the cause of diseases classified elsewhere; M62.50 Muscle wasting and atrophy, not elsewhere classified, unspecified site; F09 Unspecified mental disorder due to known physiological condition; Z86.19 Personal history of other infectious and parasitic diseases
CPT/HCPCS: 36415; 36600; 71045-TC; 80048-TC; 80053-TC; 80061-TC; 80076-TC; 80202-TC; 81000-TC; 82550-TC; 82728-TC; 83540-TC; 83605-TC; 83615-TC; 83735-TC; 84100-TC; 84439-TC; 84443-TC; 84484-TC; 85025-TC; 85730-TC; 86140-TC; 87040-TC; 87081-TC; 87086-TC; 87186-TC; 93307-TC; A6253; G0378; J0692; J1650; J2543; J3370; J3490; J7030; J7050; J7060